=== PATIENT | female | born 1970 | race Hispanic/Latino ===

== ENCOUNTER 2017-07-26 06:01 | Day surgery (SDC) | payer MEDICAID ==
[~2017-07-26] VITALS: Ht 154.9 cm; Wt 81.6 kg
[~2017-07-26 06:01] MED LIST: ALBUTEROL1 IN; CLONAZEPAM1 MG PO; DETROL LA4 MG PO; INDERAL 20MG TA20 MG PO; NAPROSYN500 MG PO; ROBITUSSIN AC10 ML PO; SYMBICORT 80-4.5MCG; VITAMIN D35000 UNI1 PO; ZOLOFT50 MG PO
[2017-07-26] MEDS ORDERED: SINGULAIR10 MG PO (06:53)
[2017-07-26 08:55] VITALS: BP 121/76
== END 2017-07-26 08:45 | disposition home or self-care (01) | DRG 391 ==
LOC: ENDO 06:01 → ORM 20:05 → ENDO 20:05 → ORM 20:40
PROVIDERS: ATTEND Internal Medicine Gastroenterology
PROC: 0DB48ZX Excision of Esophagogastric Junction, Via Natural or Artificial Opening Endoscopic, Diagnostic (ICD-10-PCS; principal; 2017-07-26)
PROC: 0DB78ZX Excision of Stomach, Pylorus, Via Natural or Artificial Opening Endoscopic, Diagnostic (ICD-10-PCS; 2017-07-26)
PROC: 0DBL8ZX Excision of Transverse Colon, Via Natural or Artificial Opening Endoscopic, Diagnostic (ICD-10-PCS; 2017-07-26)
DX: K21.0 Gastro-esophageal reflux disease with esophagitis (principal); K22.11 Ulcer of esophagus with bleeding; K29.71 Gastritis, unspecified, with bleeding; K44.9 Diaphragmatic hernia without obstruction or gangrene; K64.4 Residual hemorrhoidal skin tags; D12.3 Benign neoplasm of transverse colon; K64.8 Other hemorrhoids; F32.9 Major depressive disorder, single episode, unspecified; J45.909 Unspecified asthma, uncomplicated; Z80.0 Family history of malignant neoplasm of digestive organs

== ENCOUNTER 2019-08-29 | Emergency (ER) | payer OTHER ==
[~2019-08-29] MED LIST changes: +SINGULAIR10 MG PO
[2019-08-29] MEDS ORDERED: ACETAMINOP160 MG/5 M PO ×2 (18:02→18:03)
[2019-08-29] MEDS ORDERED: CLEOCIN300 MG PO (18:02)
[2019-08-29] MEDS ORDERED: PROAIR HFA108 MCG/AC (18:03)
[2019-08-29 18:56] LABS: URINE BILIRUBIN - DIPSTICK NEGATIVE (NEGATIVE); URINE BLOOD DIPSTICK NEGATIVE (NEGATIVE); URINE COLOR YELLOW; URINE GLUCOSE - DIPSTICK NEGATIVE (NEGATIVE); URINE KETONE NEGATIVE (NEGATIVE); URINE LEUK ESTERASE NEGATIVE (NEGATIVE); URINE NITRITE - DIPSTICK NEGATIVE (Negative); URINE PROTEIN - DIPSTICK NEGATIVE (NEG-TRACE); URINE SPECIFIC GRAVITY 1.025; URINE UROBILINOGEN - DIPSTICK 0.2 E.U./dL (0.2)
[2019-08-29] MEDS ORDERED: REGLAN10 MG PO (21:25)
[2019-08-29] MEDS ORDERED: FLEXERIL PO (21:25)
== END 2019-08-29 22:00 | disposition home or self-care (01) | DRG 103 ==
DX: R51 Headache (principal); S30.1XXA Contusion of abdominal wall, initial encounter; S40.012A Contusion of left shoulder, initial encounter; S70.02XA Contusion of left hip, initial encounter; V43.62XA Car passenger injured in collision with other type car in traffic accident, initial encounter

== ENCOUNTER 2022-01-12 12:46 | Emergency (ER) | payer BC ==
[2022-01-12] VITALS (8 sets, daily range): BP systolic 107–186; BP diastolic 59–105
[~2022-01-12] VITALS: Ht 154.9 cm; Wt 84.0 kg
[~2022-01-12 12:46] MED LIST changes: +ACETAMINOP160 MG/5 M PO; +CLEOCIN300 MG PO; +FLEXERIL PO; +PROAIR HFA108 MCG/AC; +REGLAN10 MG PO
[2022-01-12 14:57] LABS: HEMATOCRIT 37.3 % (37.0-47.0); HEMOGLOBIN 11.6 g/dl (12.0-16.0); MEAN CELL VOLUME 85.2 fL CALC (80.0-100.0); MEAN CORPUSCULAR HGB 26.5 pG CALC (26.0-32.0); MEAN CORPUSCULAR HGB CONC 31.1 g/dL CAL (32.0-36.0); NEUT# 2.45 thou/uL (2.00-7.15); RED BLOOD COUNT 4.38 mill/uL (4.20-5.60); RED CELL DISTRI WIDTH 13.3 % (11.5-15.5)
[2022-01-12 15:16] LABS: ALBUMIN 4.2 g/dL (3.2-5.0); ALKALINE PHOSPHATASE 179 u/l (38-126); ANION GAP 9 (6-22 (CALC)); BILIRUBIN, TOTAL 0.2 mg/dL (0.0-1.4); BUN 14 mg/dL (7-17); BUN/CREATININE RATIO 20 (12-20 (CALC)); CARBON DIOXIDE 26 mmol/l (22-30); CHLORIDE 107 mmol/l (95-108); CREATININE 0.7 mg/dL (0.5-1.0); GFR FOR AFR.AMER. > 60 ML/MIN (>=60 (CALC)); GFR OTHER RACES > 60 ML/MIN (>=60 (CALC)); LIPASE 71 u/l (23-300); SGOT/AST 31 u/l (14-36); SODIUM 138 mmol/l (137-146); TOTAL PROTEIN 7.5 g/dL (6.3-8.2)
[2022-01-12 16:16] LABS: URINE BILIRUBIN - DIPSTICK NEGATIVE (NEGATIVE); URINE BLOOD DIPSTICK NEGATIVE (NEGATIVE); URINE COLOR YELLOW; URINE GLUCOSE - DIPSTICK NEGATIVE (NEGATIVE); URINE KETONE NEGATIVE (NEGATIVE); URINE LEUK ESTERASE NEGATIVE (NEGATIVE); URINE PROTEIN - DIPSTICK NEGATIVE (NEG-TRACE); URINE UROBILINOGEN - DIPSTICK 0.2 E.U./dL (0.2)
[2022-01-12 16:17] LABS: URINE NITRITE - DIPSTICK NEGATIVE (Negative)
[2022-01-12] MEDS ORDERED: REGLAN10 MG PO ×2 (17:59→18:07)
[2022-01-12] MEDS ORDERED: LORTAB 7.57.5 MG PO (17:59)
[2022-01-12] MEDS ORDERED: HYDROCO/APAP1 T10 PO (18:06)
== END 2022-01-12 18:39 | disposition home or self-care (01) | DRG 392 ==
LOC: ED 12:46
PROVIDERS: Nurse Practitioner
DX: R10.31 Right lower quadrant pain (principal); K40.90 Unilateral inguinal hernia, without obstruction or gangrene, not specified as recurrent; J45.909 Unspecified asthma, uncomplicated; K21.9 Gastro-esophageal reflux disease without esophagitis
CPT/HCPCS: Q9967

== ENCOUNTER 2024-07-13 08:18 | Day surgery (SDC) | payer BC ==
[~2024-07-13] VITALS: Ht 154.9 cm; Wt 78.0 kg
[~2024-07-13 08:18] MED LIST changes: +AUGMENTIN500TAB PO; +AZO BLADDER CON1 CAP PO; +BENADRYL25 M1 PO; +BIOTIN FORTE5 MG PO; +DICLOFENAC75 MG PO; +EMGALITY100 MG/ML; +FLEXERIL5 M1 PO; +HYDROCO/APAP1 T10 PO; +LORTAB 7.57.5 MG PO; +LOSARTAN POTASS25 MG PO; +NAPROXEN500 MG PO; +OMEPRAZOLE20 MG PO; +PEPCID20 MG PO; +RABEPRAZOLE SOD20 MG PO; +SYMBICORT1 AE1 IN; +VITAMIN D PO; +ZYRTEC10 MG PO; +[UNRECOGNIZED DRUG - OTHER] SC
[2024-07-13] MEDS ORDERED: LACTATED RINGER'S 1,000 ML IV ONE (08:23)
[2024-07-13] MEDS ORDERED: FAMOTIDINE 10MG/ML 2ML SDV IV ONE (08:23)
[2024-07-13 10:45] VITALS: BP 121/85
[2024-07-13] MEDS ORDERED: DiphenhydrAMINE HCL 50 MG/ML SDV IV ONE (12:54)
[2024-07-13] MEDS ORDERED: PROPOFOL 200 MG/20 ML VIAL IV ONE (12:54)
[2024-07-13] MEDS ORDERED: LIDOCAINE HCL 2% 2ML SDV IV ONE (12:54)
[2024-07-13] MEDS ORDERED: GLYCOPYRROLATE 0.2 MG/ML IV ONE (12:54)
== END 2024-07-13 10:38 | disposition home or self-care (01) | DRG 392 ==
LOC: ORM 08:18
PROVIDERS: ATTEND Surgery
PROC: 0DJD8ZZ Inspection of Lower Intestinal Tract, Via Natural or Artificial Opening Endoscopic (ICD-10-PCS; principal; 2024-07-13)
DX: R10.31 Right lower quadrant pain (principal); K21.9 Gastro-esophageal reflux disease without esophagitis; J45.909 Unspecified asthma, uncomplicated; Z90.49 Acquired absence of other specified parts of digestive tract; Z86.0100 Personal history of colon polyps, unspecified
CPT/HCPCS: J1200; J1596